=== PATIENT | female | born 1980 | race African-American/Black ===

== ENCOUNTER → 2017-02-23 | Outpatient (CLI) | payer OTHER ==
[~2017-02-23] MED LIST: ATIVAN1 MG PO; BACTRIM DS TAB1 EACH PO; CIPRO250 M1 PO; CLONAZEPAM 1 MG1 M1 PO; CYCLOBENZAPRINE5 MG PO; FIORICET 50-321 EACH PO; FLAGYL500 MG PO; FLEXERIL PO; MACROBID 100 M100 M1 PO; MOBIC15 MG PO; NEURONTIN 300300 M1 PO; NEURONTIN600 MG PO; NOHOMEMEDICATIONS; NORCO 5-325 TA1 EACH PO; NORTRIPTYLINE H50 MG PO; PERCOCET 10-321 EACH PO; PERCOCET 5-3251 EACH PO; PERCOCET PO; PHENERGAN 25 MG25 M1 PO; PHENERGAN25 M2 RC; XANAX 0.5 MG0.5 MG PO
--- NOTE | 2017-03-10 09:02 | PAINCON ---
[address] [address] PAIN MANAGEMENT CONSULTATION Name: CHAZ MULLINS [facility] [id number] Admission: 02/23/17 Attend Phys: Jorgito Orlando DO Discharge: Date of : 78 Report #: [id number] THIS REPORT FOR: //name// CC: Dr. Hai Matamoros DATE OF SERVICE: 02/23/2017 REFERRING PHYSICIAN: Dr. Hai Matamoros. CHIEF COMPLAINT: Neck pain, left upper extremity pain with paresthesias. HISTORY OF PRESENT ILLNESS: As you know, the patient is a 37-year-old female returning in followup visit for medication management. The patient feels medications are working beneficially for pain control. She reports a 60% improvement in overall pain with medications, but places pain score today 8/10. She returns requesting refill on therapy. She indicates that activities, working on her computer and certain movements of her neck exacerbate symptoms. Otherwise, medications work pretty well for pain control. She returns requesting refill on medications at current dosing. ALLERGIES: KETOROLAC, PENICILLIN. CURRENT MEDICATIONS: Alprazolam 0.5 mg every 6 hours, clonazepam 1 mg p.o. at bedtime, cyclobenzaprine 10 mg 4 times a day, gabapentin 1200 mg 3 times a day, nortriptyline 100 mg p.o. at bedtime, Percocet 10/325 one tab every 6 hours p.r.n. for pain, promethazine 25 mg every 4 hours. SOCIAL HISTORY: The patient continues to smoke. Denies IV or illicit drug use. Denies any chronic alcohol use. She is working, not receiving workmen's compensation, unaccompanied today. IMAGING: No new imaging available. PHYSICAL EXAMINATION: VITAL SIGNS: Blood pressure 142/86, pulse is 90, respiratory rate 16, unlabored. The patient is 94% on room air, current temperature 98.0 degrees Fahrenheit, height 5 feet 4 inches tall, weight 183 pounds, BMI calculated 31. GENERAL: Well-developed, well-nourished, well-hydrated 37-year-old female appearing her stated age. Pain is rated at around 8/10. HEENT: Normocephalic, atraumatic. Pupils equal, round, reactive to light. Extraocular muscles are intact. Sclerae nonicteric without injection. NEUROLOGIC: Cranial nerves 2-12 grossly intact. Speech is fluent. EXTREMITIES: Show no clubbing, no cyanosis, no edema. MUSCULOSKELETAL: Upper extremity strength is symmetrical 5/5[place] [address] PAIN MANAGEMENT CONSULTATION Name: CHAZ MULLINS Room: [facility].#: [id number] Admission: 02/23/17 Attend Phys: Jorgito Orlando DO Discharge: Date of : 79 Report #: [id number] tone equal and symmetrical. Spurling's test is negative. Cervical provocation testing is met with increasing pain on the left when compared to the right. Active and passive range of motion of the left shoulder intensifies pain. ASSESSMENT: 1. Myofascial pain. 2. Chronic neck pain. 3. Peripheral neuropathy of unknown origin. 4. Opioid dependency. 5. Chronic intractable pain. PLAN: 1. The patient returns today in followup visit requesting refill on medications. We have discussed with the patient our desire to further evaluate for more aggressive treatment options. I recommend strongly the patient to be seen by Neurology and undergo upper extremity EMG to determine which nerve root may be involved in causing her peripheral neuropathic symptoms in the left upper extremity. The patient and I have discussed today the possibility of having or undergo this evaluation. I recommended strongly to the patient today. I have provided the patient with names of Neurology teams. Unfortunately, at this time, the patient cannot afford time of work for this evaluation. I do feel this is going to be a necessary component to determine more appropriate treatment options in the future as opioid medications are not an appropriate long-term therapy in this patient's case. The patient will consider this option. 2. The patient was provided a prescription of gabapentin 600 mg dose 2 tabs p.o. t.i.d., #180 with 2 refills, 3 months' worth of medication. 3. The patient will be continued on nortriptyline 50 mg dose 2 tabs p.o. at bedtime, #60, two refills, 3 months' worth of medication. 4. The patient will be continued on Percocet 10//325 one tab every 6 hours p.r.n. for pain, #120, releases of today, 4 weeks from today, 8 weeks from today, 3 months' worth of medication. I have advised the patient that this medication will ultimately need to be discontinued as it is not appropriate treatment for neuropathic symptoms. We need to adjust for neuropathic control with more appropriate nerve related medications. We will adjust these at our next visit. Hopefully, the patient will have had a chance to see Neurology prior to that next visit. <ELECTRONICALLY SIGNED> By: Jorgito Orlando DO 03/10/17 0902 [id number] Orlando DO /nt
== END ==
LOC: M.PC 00:56
DX: G62.89 Other specified polyneuropathies (principal); G89.29 Other chronic pain; M79.1 Myalgia; F11.20 Opioid dependence, uncomplicated

== ENCOUNTER → 2017-06-04 | Outpatient (CLI) | payer OTHER ==
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
== END ==
LOC: M.PC 03:27
DX: M79.1 Myalgia (principal); M54.2 Cervicalgia; G62.9 Polyneuropathy, unspecified; F11.20 Opioid dependence, uncomplicated; G89.29 Other chronic pain

== ENCOUNTER → 2017-07-14 | Outpatient (CLI) | payer OTHER ==
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
== END ==
LOC: M.PC 00:09
DX: M54.2 Cervicalgia (principal); M79.1 Myalgia; G89.4 Chronic pain syndrome; G62.9 Polyneuropathy, unspecified; F11.20 Opioid dependence, uncomplicated

== ENCOUNTER → 2018-01-26 | Outpatient (CLI) | payer OTHER ==
[~2018-01-26] MED LIST changes: +AMBIEN 10 MG TA10 MG PO; -XANAX 0.5 MG0.5 MG PO; +XANAX1 MG PO
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
== END ==
LOC: M.PC 04:41
DX: G90.512 Complex regional pain syndrome I of left upper limb (principal); M79.18 Myalgia, other site; M54.2 Cervicalgia; G89.4 Chronic pain syndrome; G62.9 Polyneuropathy, unspecified; F11.20 Opioid dependence, uncomplicated; Z79.899 Other long term (current) drug therapy